=== PATIENT | female | born 1950 ===

== ENCOUNTER 2017-12-07 05:44 | Inpatient (IN) | payer BC ==
[2017-12-07] MEDS ORDERED: Buffered Lidocaine 0.9% SYRIN* 5 ML/SYR SYRINGE INTRADERM ONE (06:00)
[2017-12-07] MEDS ORDERED: Gabapentin CAP(*) 300 MG PO ONE (06:00)
[2017-12-07] MEDS ORDERED: Famotidine IV* 10 MG/ML 2 ML (20 mg) IV ONE (06:00)
[2017-12-07] MEDS ORDERED: ceFAZolin 2 GM PREMIX (*) 2 GM/50 ML BAG IVPB ONE (06:19)
[2017-12-07] MEDS ORDERED: Famotidine IV* 10 MG/ML 2 ML (20 mg) ONE (06:19)
[2017-12-07] MEDS ORDERED: Gabapentin CAP(*) 300 MG ONE (06:19)
[2017-12-07] MEDS ORDERED: Lidocaine 1% MPF wEPI 200,000* 30 ML SDV ONE (06:57)
[2017-12-07] MEDS ORDERED: Bupivacaine 0.5% SDV PF* 30ML VIAL ONE (06:58)
[2017-12-07] MEDS ORDERED: Midazolam* 1 MG/ML 5 ML VIAL (5 MG) ONE (07:30)
[2017-12-07] MEDS ORDERED: fentaNYL* 50 MCG/ML 2 ML VIAL (100 MCG VIAL) ONE (07:30)
[2017-12-07] MEDS ORDERED: KETAMINE HCL* 50 MG/ML 10 ML VIAL ONE (08:03)
[2017-12-07] MEDS ORDERED: Ketorolac INJ* 30 MG/ML 1 ML VIAL ONE (08:22)
[2017-12-07] MEDS ORDERED: Bupivacaine-MPF SPINAL* 7.5 MG/ML - 2ML AMP ONE (08:22)
[2017-12-07] MEDS ORDERED: DiMENhydriNATE IV* 50 MG/ML VIAL ONE (08:22)
[2017-12-07] MEDS ORDERED: Lidocaine 2% PF * 5 ML VIAL ONE (08:22)
[2017-12-07] MEDS ORDERED: Propofol* 10 MG/ML 20 ML BTL IV PUSH ONE (08:22)
[2017-12-07] MEDS ORDERED: Dexamethasone IV* 4 MG/ML 1 ML (4 MG) ONE (08:22)
[2017-12-07] MEDS ORDERED: EPHEDrine (Pressors)* 50 MG/ML VIAL ONE (08:22)
[2017-12-07] MEDS ORDERED: Cyclobenzaprine TAB* 10 MG PO PRN (10:00)
[2017-12-07] MEDS ORDERED: Ondansetron TAB* 4 MG PO PRN (10:00)
[2017-12-07] MEDS ORDERED: diPHENhydraMINE IV* 50 MG/ML 1 ml VIAL (BENADRYL) IV PRN (10:00)
[2017-12-07] MEDS ORDERED: Morphine VIAL* 4 MG/ML VIAL (1 ml vial) IV PRN ×2 (10:00)
[2017-12-07] MEDS ORDERED: diPHENhydraMINE PO* 25 MG PO PRN (10:00)
[2017-12-07] MEDS ORDERED: Magnesium Hydroxide LIQ* 30 ML UDC PO PRN (10:00)
[2017-12-07] MEDS ORDERED: Acetaminophen TAB* 325 MG PO PRN (10:02)
[2017-12-07] MEDS ORDERED: Naloxone* 0.4 MG/ML 1 ML VIAL IV PRN (10:02)
[2017-12-07] MEDS ORDERED: Ondansetron INJ* 2 MG/ML VIAL IV PRN (10:02)
[2017-12-07] MEDS ORDERED: oxyCODONE TAB* 5 MG TAB PO PRN (10:02)
[2017-12-07] MEDS ORDERED: Gabapentin CAP(*) 100 MG PO ONE (10:04)
[2017-12-07] MEDS ORDERED: Acetaminophen TAB* 325 MG ONE (10:38)
[2017-12-07] MEDS: HYDROmorphone INJ* 0.5 MG/0.5 ML SYRINGE IV PRN ×3 (10:42→11:02)
[2017-12-07] MEDS ORDERED: HYDROmorphone INJ* 0.5 MG/0.5 ML SYRINGE ONE ×2 (10:42→11:01)
[2017-12-07] MEDS ORDERED: traMADol TAB* 50 MG PO SCH ×2 (11:00→18:00)
--- NOTE | 2017-12-07 11:18 | RAD ---
INDICATION: Status post total right knee replacement surgery. TECHNIQUE: 2 views of the right knee were obtained. FINDINGS: The patient is status post total right knee replacement surgery. The bones and prostheses are in normal alignment. There is air within the soft tissues consistent with the patient's recent surgery. There are multiple surgical susan which project over the midline anteriorly. IMPRESSION: STATUS POST TOTAL RIGHT KNEE REPLACEMENT SURGERY.
[2017-12-07] MEDS: oxyCODONE TAB* 5 MG TAB PO PRN (13:37)
[2017-12-07] MEDS: D5W 1/2 NS 1000 ML BAG* 1,000 ML IV SCH (13:40)
--- NOTE | 2017-12-07 14:12 | OP ---
DATE OF OPERATION: 12/07/17 - ROOM #[id number] DATE OF : 50 SURGEON: Guy Wu MD BOUFFANT CURTAIN MACHINE TENDER: HENRIQUE Tena ANESTHESIA: Spinal and sedation. PRE-OP DIAGNOSIS: Osteoarthritis, right knee. POST-OP DIAGNOSIS: Osteoarthritis, right knee. OPERATIVE PROCEDURE: Right total knee arthroplasty. ESTIMATED BLOOD LOSS: Less than 50 cc. COMPLICATIONS: None. HARDWARE: Carmine Persona #6 narrow femur, D tibia, 10 mm polyethylene pacer, 32 mm all polyethylene patellar button. SUMMARY: Mrs. Ballard is a 67-year-old female who is having continued troubles with right knee pain. She has very specifically [id number] in the medial compartment with spurring in all three compartments. She has been treated conservatively with physical therapy, antiinflammatories, topicals and injection , but still has very specific pain about the knee. I discussed with her the total knee arthroplasty should work well to decrease her pain and improve her function versus surgery such as infection, scar formation, stiffness, DVT, pulmonary embolism, hardware failure and continued pain were some of the risks discussed. She had been declared medically optimized and wished to proceed. Sol Lemus was present throughout the case and the case could not have been done without an junior assistant manager. DESCRIPTION OF PROCEDURE: The patient was brought to the OR and spinal anesthesia was introduced. Vallecillo catheter was placed. Tourniquet was placed over the proximal right thigh and was used during the case. Total tourniquet time would be approximately 55 minutes. Right knee was prepped and then draped. Esmarch was used to exsanguinate the leg and the tourniquet was raised. Midline incision was made beginning just medial to the tibial tubercle and split the patella down the middle and came upwards about 7 cm. Incision was carried down to the skin and subcutaneous fat. Small bleeders encountered were ligated using electrocautery. Extensor mechanism was exposed and a sharp parapatellar arthrotomy was made. Quite a bit of clear yellowish joint fluid was encountered. The fat pad was sharply excised and the soft issues were sharply elevated from the medial side of the tibia. Patellar measured 21 mm in thickness and a nice 10 mm cut was taken. The patella was then easily subluxated laterally and the knee was flexed up. Nice exposure of the distal femur was obtained. It could be seen where she was fully worn down with exposed bone within the knee. A step drill was used and opened the femoral canal. Intramedullary guide was placed. Guide was adjusted until it was parallel with the epicondyles and then it was pinned into place. Distal femoral cutting guide was then pinned into place and the intramedullary guide was removed. Guide had been set at 2 degrees and 2 mm. Distal femoral cut was taken and it appeared a nice cut was obtained. Femur was sized and she sat right on a 6. Anterior 6 holes were drilled and 6 cutting guide was placed. Drill was run and this came right on the top side of the femur. Anterior and posterior femoral cuts were then taken as were the chamfer cuts. Attention was turned to the tibia. Step drill was used to open the tibial canal and intramedullary guide was placed. Outrigger was assembled and adjusted until it appeared it would take 2 mm from the worn medial side. Proximal tibial cut was taken and it appeared a nice cut was obtained. With a 10- block, she came out nicely into a full extension and was loose in flexion, as the system has designed to take an extra 2 mm posteriorly. With the alignment mamadou in place, the alignment appeared perfect. Posterior capsule was injected at this point with 20 cc of local. Tibia was sized and a D sat nicely. Proximal tibia was drilled and then punched. Trial instrumentation was placed and she came out nicely into full extension, flexed easily and was stable throughout. Patella tracking was also perfect. Patella sized at 32 and holes were drilled and the trial was placed. Again, patella tracking was perfect. Trial instrumentation was removed. The knee was copiously pulse lavaged. Cement was being prepared. Tibia, followed by femur, patella were also cemented into place. Once the cement had hardened, the knee was searched for excess cement and a few small pieces were found. The knee was again copiously pulse lavaged and both gutters were injected with 10 cc of the 0.5% Marcaine and 1% lidocaine with epi mixture and another 10 was injected into the suprapatellar pouch. A 10-polyethylene was then snapped into place. Knee was again copiously pulse lavaged and parapatellar arthrotomy was repaired using interrupted #1 Vicryl sutures. Subcutaneous tissues were reapproximated with 2-0 Vicryl and skin was closed using susan. Knee was injected with additional 10 cc of the local mixture, a total of 60 had been used. Sterile dressing was applied in the OR. Cryo/Cuff was applied in the OR. The patient was then awakened and was stable on transfer to the recovery room. [id number]/[facility] #: [id number] MTDD
[2017-12-07] MEDS ORDERED: Warfarin TAB(*) 10 MG PO ONE (17:00)
[2017-12-07] MEDS: Clindamycin 600 MG IVPREMIX(* 600 MG/50 ML SDV IV SCH ×2 (17:23→23:48)
[2017-12-07] MEDS: CMC: Nebivolol TAB (NF) 2.5 MG TAB PO SCH (19:02)
[2017-12-07] MEDS: Ondansetron INJ* 2 MG/ML VIAL IV PRN (19:25)
--- NOTE | 2017-12-07 19:41 | CONS ---
[facility] MEDICINE CONSULTATION REPORT: DATE OF CONSULT: 12/07/17 PROVIDER: Ava Lam NP ATTENDING PHYSICIAN: Dr. Wu. CONSULTING PHYSICIAN: Dr. Sultana Duenas (dictated by Ava Lam NP). REASON FOR CONSULT: Hypertension. HISTORY OF PRESENT ILLNESS: Ms. Ballard is a 67-year-old female with a past medical history significant for hypertension, hypothyroid, GERD, and insulin resistance, who presented to [facility] today for elective right total knee arthroplasty with Dr. Wu. In brief, the patient had ongoing pain and failed conservative measures; therefore, opted to have a right total knee replacement. In the postoperative period, the patient has no complaints. She is resting comfortably in her bed. She does confirm that she feels mildly drowsy. She does report that prior to coming in for surgery today, she was in her normal state of health. She denies any fevers. Denies any nausea, vomiting , or diarrhea. Denies any chest pain or shortness of breath. Denies any gross hematuria or dysuria. Denies any focal weakness. Denies any dysphagia. Denies any rashes or lesions. Denies any depression or anxiety. Given her history of hypertension, we were asked by Orthopedics to consult and assist in managing her hypertension. PAST MEDICAL HISTORY: 1. Hypertension. 2. Hypothyroid. 3. GERD. 4. Insulin resistance. PAST SURGICAL HISTORY: Cataract surgery. MEDICATIONS: As outpatient are: 1. Diclofenac 75 mg p.o. daily. 2. Crestor 20 mg p.o. daily. 3. Synthroid 100 mcg p.o. daily. 4. Bystolic 5 mg p.o. daily. 5. Lansoprazole 30 mg p.o. daily. 6. Aspirin 81 mg p.o. daily. 7. Multivitamin 1 p.o. daily. 8. Caltrate with vitamin D 1 daily. 9. Metformin 250 mg daily. ALLERGIES: LISINOPRIL and PENICILLIN. FAMILY HISTORY: Mother and father with a history of coronary artery disease; father at the age of 58. Diabetes, mother with a history of diabetes. Cancer, no documented cancers within the family. SOCIAL HISTORY: She denies tobacco, alcohol, or illicit drug use. She is . In the event she is unable to make her own decisions, her surrogate decision maker is her , Carlene Ballard, phone number is [phone]. She is a full code. REVIEW OF SYSTEMS: General: There was no fever. There were no chills. No unintended weight loss. Cardiac: No chest pain. No edema. Respiratory: Denies any cough, congestion, hemoptysis, or shortness of breath. GI: Denies any nausea, vomiting, diarrhea, or abdominal pain. : Denies any gross hematuria or dysuria. Neurologic: No focal weakness or sensory loss. Eyes: No visual complaints. ENT: No dysphagia. Musculoskeletal: Does report chronic joint aches. Skin: Denies any rashes or lesions. Psych: Denies any depression or anxiety. PHYSICAL EXAM: Vital Signs: Temperature was 97.5, heart rate was 57, respirations 16, O2 saturation was 99% on room air, blood pressure was 110/62. General: Ms. Ballard is a 67-year-old female, sitting up in the bed. She is not in any acute distress. Neurologic: She is alert and oriented x3. She is able to move all extremities. Pupils are equal and reactive to light. Cardiac: S1 , S2. Regular rate and rhythm. No murmurs, rubs, or gallops. Respiratory: Lung sounds are clear to auscultation bilaterally. No accessory muscle use. Abdomen is soft and nontender. Bowel sounds are active x4. Musculoskeletal: She does have a dressing intact to her right knee. Pedal pulses are +2 bilaterally. Posterior tibial pulses are +2 bilaterally. Skin is intact. There are no rashes. She does have a dressing to her right knee. Neurologic: She is alert and oriented x3. There are no focal deficits. Her speech is clear. DIAGNOSTIC STUDIES/LAB DATA: Labs from 11/28/17: WBCs were 6.3, RBCs 4.73, hemoglobin was 13.7, hematocrit was 40, platelet count was 248. Sodium 140, potassium 4.7, chloride 103, carbon dioxide was 32, anion gap of 5, BUN was 21, creatinine 0.79, glucose was 114, calcium was 10.0. Knee x-ray completed on 12/07/17. Radiologist's impression: Status post total right knee replacement surgery. IMPRESSION AND PLAN: Ms. Ballard is a 67-year-old female with past medical history significant for hypertension, hypothyroidism, insulin resistance, gastroesophageal reflux disease, who presented for elective right total knee arthroplasty with Dr. Wu. In the immediate postoperative period, she has no complaints. We were asked to consult and assist in management of her hypertension. Our recommendations are as follows: 1. Status post right total knee arthroplasty. Management per Orthopedics. 2. Hypertension. I would recommend continuing her Bystolic 5 mg p.o. daily. 3. Hypothyroid. She should continue on her Synthroid 100 mcg p.o. daily. 4. Hyperlipidemia. She should continue on Crestor 20 mg p.o. daily. 5. Gastroesophageal reflux disease. She should continue on omeprazole p.o. daily. 6. Insulin resistance. She should continue on her metformin 250 mg p.o. daily. 7. Diet: I would recommend that she be placed on a heart-healthy, consistent carb diet. 8. DVT prophylaxis: As per Orthopedics. 9. Code status: She is a full code. TIME SPENT: Time spent on this consultation was approximately 45 minutes, more than half the time was spent with the patient at the bedside reviewing events leading thus far to her hospitalization and performing physical exam and reviewing my plan of care. AVA LAM, DAVID [id number]/[facility] #: [id number] IRON
[2017-12-07] MEDS: Acetaminophen TAB* 325 MG PO SCH (21:13)
[2017-12-07] MEDS: Docusate CAP* 100 MG PO SCH (21:13)
[2017-12-07] MEDS: Magnesium Hydroxide LIQ* 30 ML UDC PO SCH (21:17)
[2017-12-07] MEDS: traMADol TAB* 50 MG PO SCH (22:00)
[2017-12-08] MEDS: D5W 1/2 NS 1000 ML BAG* 1,000 ML IV SCH ×2 (01:02→12:49)
[2017-12-08] MEDS: traMADol TAB* 50 MG PO SCH ×4 (03:49→22:29)
[2017-12-08] MEDS: Levothyroxine TAB* 100 MCG TAB PO SCH (06:03)
[2017-12-08] MEDS: Acetaminophen TAB* 325 MG PO SCH ×4 (06:03→22:29)
[2017-12-08 06:08] LABS: Hematocrit 32 % (35-47); Hemoglobin 10.9 g/dl (12.0-16.0); Mean Platelet Volume 8.8 um3 (7.4-10.4); Platelet Count 208 10^3/ul (150-450)
[2017-12-08 06:15] LABS: INR 1.37 (0.77-1.02)
[2017-12-08 07:02] LABS: EGFR Non-African American 101.7 (>60)
[2017-12-08] MEDS: Omeprazole CAP* 20 MG PO SCH (07:47)
[2017-12-08] MEDS: Clindamycin 600 MG IVPREMIX(* 600 MG/50 ML SDV IV SCH (07:47)
[2017-12-08] MEDS: oxyCODONE TAB* 5 MG TAB PO PRN ×3 (07:47→17:22)
[2017-12-08] MEDS: Atorvastatin* 40 MG TAB PO SCH (08:36)
[2017-12-08] MEDS: Ondansetron INJ* 2 MG/ML VIAL IV PRN ×2 (08:52→14:35)
[2017-12-08] MEDS: Docusate CAP* 100 MG PO SCH ×3 (08:52→22:29)
[2017-12-08] MEDS: Prenatal Vitamin TAB PO SCH ×2 (08:52→08:57)
[2017-12-08] MEDS: metFORMIN* 500 MG TAB PO SCH ×2 (08:52→08:57)
[2017-12-08] MEDS: Magnesium Hydroxide LIQ* 30 ML UDC PO SCH ×3 (08:52→22:45)
[2017-12-08] MEDS ORDERED: Vitamin THERAPEUTIC TAB PO SCH (09:00)
--- NOTE | 2017-12-08 09:27 | PN ---
Progress Note - Progress Note Date of Service: 12/08/17 SOAP: Subjective: []Patient seen OOB in chair. She is POD 1 s/p right total knee arthroplasty. She is nauseous and vomit while I was in the room. She has decreased sensation of her right foot which has improved overnight, and decreased ability to dorsiflex her right foot which has also improved overnight. She denies chest pain, shortness of breath or dizziness. Objective: [] Vital Signs Temp 97.6 F 12/08/17 07:21 Pulse 53 12/08/17 08:36 Resp 18 12/08/17 07:47 BP 122/63 12/08/17 08:36 Pulse Ox 96 12/08/17 07:21 Intake & Output 12/07/17 12/08/17 12/08/17 18:59 06:59 18:59 Intake Total 1547 2190 Output Total 900 2400 Balance 647 -210 Intake: IV Fluids 1397 776 D5W 1/2 NS 297 776 LR 1100 IVPB 114 ABX - CLINDAMYCIN 114 Oral 150 1300 Output: Vallecillo 900 2400 Laboratory Last Values Hgb 10.9 g/dl (12.0-16.0) L 12/08/17 05:57 Hct 32 % (35-47) L 12/08/17 05:57 Plt Count 208 10^3/ul (150-450) 12/08/17 05:57 MPV 8.8 um3 (7.4-10.4) 12/08/17 05:57 INR (Anticoag Therapy) 1.37 (0.77-1.02) H 12/08/17 05:57 Sodium 139 mmol/L (135-145) 12/08/17 05:57 Potassium 4.2 mmol/L (3.5-5.0) 12/08/17 05:57 Chloride 104 mmol/L (101-111) 12/08/17 05:57 Carbon Dioxide 29 mmol/L (22-32) 12/08/17 05:57 Anion Gap 6 mmol/L (2-11) 12/08/17 05:57 BUN 12 mg/dL (6-24) 12/08/17 05:57 Creatinine 0.59 mg/dL (0.51-0.95) 12/08/17 05:57 Est GFR ( Amer) 123.0 (>60) 12/08/17 05:57 Est GFR (Non-Af Amer) 101.7 (>60) 12/08/17 05:57 BUN/Creatinine Ratio 20.3 (8-20) H 12/08/17 05:57 Glucose 174 mg/dL (70-100) H 12/08/17 05:57 POC Glucose (mg/dL) 171 mg/dL (70-100) H 12/07/17 10:13 Calcium 8.7 mg/dL (8.6-10.3) 12/08/17 05:57 General: Vomiting, NAD RLE: Dressing CDI with cryo unit in use. Thigh soft. Sensation intact to light touch throughout the lower leg and foot, though reported decreased sensation over dorsum of foot and medial foot. 1st webspace and great toe with normal sensation. Weak dorsiflexion is present. Able to extend toes, no difficulty with plantarflexion. DP pulse 2+, capillary refill less than two seconds distally. Calves supple and nontender without erythema, edema or palpable cords. Assessment: []POD 1 sp right total knee arthroplasty Plan: []WBAT PT/OT. Encouraged ankle pumps to work on dorsiflexion Heparin bridge to coumadin. Coumadin 4 mg today Appreciate medicine consult
[2017-12-08] MEDS ORDERED: Dextrose 50% Syringe 50 ML* 25 GM/50 ML SYRINGE IV PUSH PRN (09:51)
[2017-12-08] MEDS: Heparin VIAL(*) 5000 UNITS/ML VIAL (FIVE THOUSAND) SUBCUT SCH ×3 (12:24→22:30)
[2017-12-08] MEDS: Insulin LISPRO* 1 UNITS UNIT SUBCUT SCH ×4 (12:28→22:02)
--- NOTE | 2017-12-08 16:50 | PN ---
Subjective Date of Service: 12/08/17 Interval History: Patient continues to have weakness in RLE with dorsiflexion and moderately decreased sensation across whole foot. Denies CP, SOB, F/C, N/V, abdominal pain , Has not urinated since avery has been removed. Passing gas with no BM. Family History: Unchanged from Admission Social History: Unchanged from Admission Past Medical History: Unchanged from Admission Objective Active Medications: Acetaminophen (Tylenol Tab*) 975 mg PO Q8HR [facility] Last Admin: 12/08/17 14:35 Dose: 975 mg Aspirin (Aspirin Ec Tab*) 81 mg PO QPM [facility] Atorvastatin Calcium (Lipitor*) 40 mg PO QAM [facility] Last Admin: 12/08/17 08:36 Dose: Not Given Bisacodyl (Dulcolax Supp*) 10 mg [place] DAILY PRN PRN Reason: constipation Cyclobenzaprine HCl (Flexeril Tab*) 10 mg PO TID PRN PRN Reason: SPASMS Dextrose (D50w Syringe 50 Ml*) 12.5 gm IV PUSH .FOR FS < 60 - SS PRN PRN Reason: FS < 60 Diphenhydramine HCl (Benadryl Iv*) 25 mg IV Q6H PRN PRN Reason: itching Diphenhydramine HCl (Benadryl Po*) 25 mg PO Q6H PRN PRN Reason: itching Docusate Sodium (Colace Cap*) 100 mg PO BID [facility] Last Admin: 12/08/17 08:55 Dose: Not Given Heparin Sodium (Porcine) (Heparin Vial(*)) 5,000 units SUBCUT Q8HR [facility] Last Admin: 12/08/17 12:43 Dose: Not Given Dextrose/Sodium Chloride (D5w 1/2 Ns 1000 Ml Bag*) 1,000 mls @ 100 mls/hr IV PER RATE [facility] Last Admin: 12/08/17 12:49 Dose: 100 mls/hr Insulin Human Lispro (Humalog*) 0 units SUBCUT ACHS [facility]; Protocol Last Admin: 12/08/17 12:33 Dose: 2 unit Levothyroxine Sodium (Synthroid Tab*) 100 mcg PO QAM@0600 [facility] Last Admin: 12/08/17 06:03 Dose: 100 mcg Magnesium Hydroxide (Milk Of Magnesia Liq*) 30 ml PO BID [facility] Last Admin: 12/08/17 08:57 Dose: Not Given Magnesium Hydroxide (Milk Of Magnesia Liq*) 30 ml PO Q6H PRN PRN Reason: constipation [facility]formin [facility] ([facility]ucophage*) [facility] Admin: 12/08/17 08:57 Dose: Not Given Morphine Sulfate (Morphine Vial*) 2 mg IV Q2H PRN PRN Reason: PAIN - SEVERE Morphine Sulfate (Morphine Vial*) 4 mg IV Q2H PRN PRN Reason: PAIN Multivitamins ( Vitamin Tab*) 1 tab PO [facility] Last Admin: 12/08/17 08:57 Dose: Not Given Nebivolol (Bystolic Tab (Nf)) 5 mg PO QPM [facility] Last Admin: 12/07/17 19:02 Dose: 5 mg Omeprazole (Prilosec Cap*) 20 mg PO DAILY@0730 [facility]; Protocol Last Admin: 12/08/17 07:47 Dose: 20 mg Ondansetron HCl (Zofran Inj*) 4 mg IV Q6H PRN PRN Reason: nausea Last Admin: 12/08/17 14:35 Dose: 4 mg Ondansetron HCl (Zofran Tab*) 4 mg PO Q6H PRN PRN Reason: NAUSEA Oxycodone HCl (Roxycodone Tab*) 5 mg PO Q4H PRN PRN Reason: PAIN - MODERATE Last Admin: 12/08/17 07:47 Dose: 5 mg Pharmacy Profile Note (Coumadin Daily Reminder*) 0 note FOLLOW UP 1700 [facility] Last Admin: 12/07/17 17:23 Dose: 1 note Tramadol HCl (Ultram*) 50 mg PO Q6H [facility] Last Admin: 12/08/17 16:13 Dose: 50 mg Vital Signs - 8 hr 12/08/17 12/08/17 12/08/17 10:23 11:25 11:43 Temperature 97.6 F Pulse Rate 51 Respiratory 16 16 Rate Blood Pressure 108/62 (mmHg) O2 Sat by Pulse 100 Oximetry 12/08/17 12/08/17 12/08/17 12:24 13:44 16:13 Temperature Pulse Rate 53 Respiratory 16 16 Rate Blood Pressure 118/67 (mmHg) O2 Sat by Pulse 98 Oximetry Oxygen Devices in Use Now: None Appearance: Patient is a 67yo female who appears stated age and is sitting in the bed in NAD. Eyes: No Scleral Icterus, PERRLA Ears/Nose/Mouth/Throat: NL Teeth, Lips, Gums, Clear Oropharnyx, Mucous Membranes Moist Neck: NL Appearance and Movements; NL JVP, Trachea Midline Respiratory: Symmetrical Chest Expansion and Respiratory Effort, Clear to Auscultation Cardiovascular: NL Sounds; No Murmurs; No JVD, RRR, No Edema Abdominal: NL Sounds; No Tenderness; No Distention, No Hepatosplenomegaly Lymphatic: No Cervical Adenopathy Extremities: No Edema, No Clubbing, Cyanosis Skin: No Rash or Ulcers, No Nodules or Sclerosis Neurological: Alert and Oriented x 3, NL Sensation - Decreased sensation on right foot. Weakness with dorsiflexion. , NL Muscle Strength and Tone Result Diagrams: 12/08/17 05:57 12/08/17 05:57 Assess/Plan/Problems-Billing Assessment: Patient is a 67yo female with a PMH for DM II, HTN here S/P RTKA who is doing well. - Patient Problems (1) History of total right knee replacement Current Visit: Yes Status: Acute Code(s): Z96.651 - PRESENCE OF RIGHT ARTIFICIAL KNEE JOINT SNOMED Code(s): 5364678139079 Comment: Management per orthopedics. H/H stable, monitor. Avery removed. No BM. Monitor for resolution of LE weakness and decreased sensation. Likely slow recovery from nerve block (2) DMII (diabetes mellitus, type 2) Current Visit: Yes Status: Acute Comment: SSI in hospital for tight BG control. Moderate control. D5W 1/2 NS stopped and NS started. (3) HTN (hypertension) Current Visit: Yes Status: Acute Code(s): I10 - ESSENTIAL (PRIMARY) HYPERTENSION SNOMED Code(s): 30130336 Comment: Normotensive. Continue Nebivilol. (4) DVT prophylaxis Current Visit: Yes Status: Acute Code(s): FDX6342 - SNOMED Code(s): 598781006 Comment: Lovenox to Coumadin per orthopedics (5) Full code status Current Visit: Yes Status: Acute Code(s): Z78.9 - OTHER SPECIFIED HEALTH STATUS SNOMED Code(s): 801435686 Status and Disposition: Inpatient.
[2017-12-08] MEDS ORDERED: NS 0.9% 1000 ML* 1,000 ML IV SCH (17:00)
[2017-12-08] MEDS: CMC: Nebivolol TAB (NF) 2.5 MG TAB PO SCH (17:22)
[2017-12-08] MEDS: Aspirin EC TAB* 81 MG TAB.EC PO SCH (17:22)
[2017-12-08] MEDS ORDERED: Ketorolac INJ* 15 MG/ML 1 ML VIAL IV PUSH ONE (18:00)
[2017-12-08] MEDS ORDERED: Warfarin TAB(*) 4 MG PO ONE (18:00)
[2017-12-09] MEDS: traMADol TAB* 50 MG PO SCH ×4 (05:05→21:51)
[2017-12-09] MEDS: Acetaminophen TAB* 325 MG PO SCH ×4 (06:19→22:50)
[2017-12-09] MEDS: Levothyroxine TAB* 100 MCG TAB PO SCH (06:19)
[2017-12-09] MEDS: Heparin VIAL(*) 5000 UNITS/ML VIAL (FIVE THOUSAND) SUBCUT SCH ×2 (06:20→13:44)
[2017-12-09 07:19] LABS: INR 3.49 (0.77-1.02)
[2017-12-09 07:20] LABS: Hematocrit 31 % (35-47); Hemoglobin 10.5 g/dl (12.0-16.0); Mean Platelet Volume 9.4 um3 (7.4-10.4); Platelet Count 189 10^3/ul (150-450)
[2017-12-09] MEDS: Insulin LISPRO* 1 UNITS UNIT SUBCUT SCH ×4 (07:40→21:15)
[2017-12-09] MEDS: Omeprazole CAP* 20 MG PO SCH (07:49)
--- NOTE | 2017-12-09 08:20 | PN ---
Progress Note - Progress Note Date of Service: 12/09/17 SOAP: Subjective: Patient seen OOB in chair. She is POD 2 s/p right total knee arthroplasty. She is nauseous but no vomiting overnight. Sensation in right foot resolved and able to dorsiflex right foot this morning. She denies chills, chest pain, shortness of breath or dizziness. Objective: Vital Signs Temp 98.0 F 12/09/17 07:12 Pulse 58 12/09/17 07:12 Resp 18 12/09/17 07:40 BP 122/63 12/09/17 07:12 Pulse Ox 100 12/09/17 07:12 Intake & Output 12/08/17 12/09/17 12/09/17 18:59 06:59 18:59 Intake Total 2278 500 0 Output Total 775 900 400 Balance 1503 -400 -400 Intake: IV Fluids 1570 ABX - CLINDAMYCIN 50 D5W 1/2 NS 1520 Oral 708 500 0 Output: Urine 700 900 400 Emesis 75 Other: Estimated Void Medium # Voids 1 Laboratory Results - last 24 hr 12/08/17 12/08/17 12/08/17 12:27 16:58 22:01 Hgb Hct Plt Count MPV INR (Anticoag Therapy) POC Glucose (mg/dL) 215 H 182 H 137 H 12/09/17 12/09/17 12/09/17 06:40 06:40 07:39 Hgb 10.5 L Hct 31 L Plt Count 189 MPV 9.4 INR (Anticoag Therapy) 3.49 H POC Glucose (mg/dL) 118 H General: WN, WD, lying comfortably in bed. A&O, NAD. RLE: Dressing C/D/I. Incision clean, moderate edema and mild ecchymosis anterior knee, susan intact, no purulent discharge. +DF/PF 5/5 equal strength bilaterally. 2+ DP. SITLT. Calf soft, nontender, no palpable cords. Assessment: POD 2 S/P R TKA with Dr. Wu on 12/07/17. Plan: - WBAT - PT/OT - Heparin bridge to coumadin. INR supratherapeutic today. Hold coumadin tonight. - Appreciate medicine consult
[2017-12-09] MEDS ORDERED: Scopolamine 1.5 mg* PATCH TRANSDERM SCH (09:00)
[2017-12-09] MEDS: Docusate CAP* 100 MG PO SCH ×2 (09:17→20:21)
[2017-12-09] MEDS: Prenatal Vitamin TAB PO SCH (09:17)
[2017-12-09] MEDS: Magnesium Hydroxide LIQ* 30 ML UDC PO SCH ×2 (09:17→20:21)
[2017-12-09] MEDS: Atorvastatin* 40 MG TAB PO SCH (09:17)
[2017-12-09] MEDS: metFORMIN* 500 MG TAB PO SCH (09:17)
[2017-12-09] MEDS ORDERED: Bisacodyl SUPP* 10 MG SUPP PR PRN (10:00)
--- NOTE | 2017-12-09 11:06 | DS ---
Amended report to enter co-signing physician. DISCHARGE SUMMARY: DATE OF ADMISSION: 12/07/17 DATE OF DISCHARGE: 12/09/17 ATTENDING PHYSICIAN: Dr.Joseph Wu* (dictated by HENRIQUE Vargas). CHIEF COMPLAINT: 1. Right knee osteoarthritis. 2. Type 2 diabetes. 3. Hypertension. DISCHARGE DIAGNOSES: 1. Status post right total knee arthroplasty. 2. Type 2 diabetes. 3. Hypertension. 4. Deep vein thrombosis prophylaxis. PROCEDURE: Right total knee arthroplasty. CONSULTATIONS: Physical Therapy, Occupational Therapy, and Medicine. BRIEF HISTORY: Ms. Ballard is a 67-year-old female with severe end-stage arthritis. She has failed conservative treatment and elected to undergo right total knee arthroplasty on 12/07/[address] Wu. HOSPITAL COURSE: Ms. Ballard was admitted to the [facility] on 12/07/17 and underwent a right total knee arthroplasty. Postoperatively, she recovered in the short- stay unit on postoperative day 1. Her Val[place] catheter was removed and she was able to urinate on her own. She was advanced to carb control diet but she did have significant nausea and vomiting. Her pain was controlled with p.o. tramadol and Tylenol and she was restarted on home medications. Labs and vital signs remained stable. She was not able to participate in physical therapy on postop day 1. In the evening of postop day 1, she was able to take some food down and had no more vomiting. On postop day 2, she attempted physical therapy. DVT prophylaxis was managed with Lovenox and Coumadin and she was supratherapeutic on postoperative day 2 and 3 with an INR of 3.49 and 3.32 respectively. On postoperative day 3, she was transferred to [facility] for continued care. PHYSICAL EXAMINATION: General: Well nourished, well developed, no acute distress, lying comfortably in her bed with basin at her side. Alert and oriented. Vital Signs: Temperature 98, pulse 58, respirations 18, blood pressure 122/63. Right lower dressing is clean, dry, and intact over the right knee. Her incision is clean and intact with moderate edema and mild ecchymosis at the anterior knee. No purulent discharge, warmth, or other signs of infection. She has good dorsiflexion and plantar flexion, which are equal bilaterally. She has 2+ DP pulse. Sensation intact to light touch distally. Her calf is soft, nontender, no palpable cords. LABORATORY DATA ON THE DATE OF DISCHARGE: Hemoglobin 10.5, hematocrit 31. INR 3.49. RADIOGRAPHS: Postoperative radiographs of the right knee demonstrate right total knee arthroplasty with satisfactory prosthesis placement and no acute bony abnormalities. DISCHARGE MEDICATIONS: 1. Aspirin 81 mg. 2. Calcium one tab daily. 3. Diclofenac 1% gel apply topically in the mornings. 4. Prevacid 30 mg daily. 5. Levothyroxine 100 micrograms daily. 6. Metformin 250 mg daily. 7. Multivitamin daily. 8. Bystolic 5 mg at night. 9. Rosuvastatin 20 mg daily. 10. Acetaminophen 875 mg every 8 hours as needed for pain. 11. Colace 100 mg as needed twice a day for constipation. 12. Zofran 4 mg as needed q.6 hours for vomiting. 13. Scopolamine 1.5 mg transdermal patch as needed for nausea. 14. Tramadol 50 mg 1 to 2 tablets every 6 hours max daily dose 8 tablets as needed for pain. 15. Vitamin B12. 16. Vitamin D3. 17. Warfarin 2 mg tablets, take 1 to 3 tablets as directed. CONDITION ON DISCHARGE: Stable. DISCHARGE INSTRUCTIONS: Ms. Ballard is a 67-year-old female postoperative day 3, status post right total knee arthroplasty, which has been complicated by nausea and vomiting. She is orthopedically stable for discharge to [facility]. Labs and vital signs have been stable. She will restart her home medications. She will hold her Coumadin tonight at 5 p.m. and recheck INR tomorrow. Coumadin dosing will be adjusted every Thursday and on discharge with visiting nursing services. She will remain weightbearing as tolerated in the right lower extremity. Once discharged from this unit, she will require home physical therapy and nursing services to do PT twice a week and check INR Thursday and . She will take Colace up to twice a day for constipation and use tramadol for pain control. She will follow up with Dr. Wu in about 4 weeks for incision check. She will have susan removed by home services at 10 to 14 days after surgery. She will call the office immediately if she developed fever, increasing pain, or increasing redness. LINDA MARKER, HENRIQUE [id number]/[facility] #: [id number] IRON
[2017-12-09] MEDS: HYDROcodone/ACETAMIN 5-325 MG* 1 TAB PO PRN ×2 (17:20→21:14)
[2017-12-09] MEDS: CMC: Nebivolol TAB (NF) 2.5 MG TAB PO SCH (17:22)
[2017-12-09] MEDS: Aspirin EC TAB* 81 MG TAB.EC PO SCH (17:45)
[2017-12-10] MEDS: HYDROcodone/ACETAMIN 5-325 MG* 1 TAB PO PRN ×2 (03:11→09:36)
[2017-12-10] MEDS: traMADol TAB* 50 MG PO SCH ×2 (03:31→09:38)
[2017-12-10 05:53] LABS: Hematocrit 29 % (35-47); Hemoglobin 9.7 g/dl (12.0-16.0); Mean Platelet Volume 8.7 um3 (7.4-10.4); Platelet Count 196 10^3/ul (150-450)
[2017-12-10 05:59] LABS: INR 3.32 (0.77-1.02)
[2017-12-10] MEDS: Levothyroxine TAB* 100 MCG TAB PO SCH (06:10)
[2017-12-10] MEDS: Acetaminophen TAB* 325 MG PO SCH (06:10)
[2017-12-10] MEDS: Omeprazole CAP* 20 MG PO SCH (07:26)
[2017-12-10] MEDS: Insulin LISPRO* 1 UNITS UNIT SUBCUT SCH ×2 (08:07→11:33)
[2017-12-10] MEDS: Magnesium Hydroxide LIQ* 30 ML UDC PO SCH (08:09)
[2017-12-10] MEDS: Docusate CAP* 100 MG PO SCH (08:09)
[2017-12-10] MEDS: metFORMIN* 500 MG TAB PO SCH (08:09)
[2017-12-10] MEDS: Prenatal Vitamin TAB PO SCH (08:09)
[2017-12-10] MEDS: Atorvastatin* 40 MG TAB PO SCH (08:09)
[2017-12-10 11:55] VITALS: BP 120/65
[2017-12-12] MEDS ORDERED: Scopolamine PATCH Remove* 1 NOTE MISC PATCH OFF SCH (09:00)
== END 2017-12-10 13:20 | DRG 302 ==
LOC: AA 05:44 → SSU 13:12
PROVIDERS: ADMIT Orthopaedic Surgery; ATTEND Orthopaedic Surgery
PROC: 0SRC0J9 Replacement of Right Knee Joint with Synthetic Substitute, Cemented, Open Approach (ICD-10-PCS; principal; 2017-12-07 07:30)
DX: M17.11 Unilateral primary osteoarthritis, right knee (principal); I10 Essential (primary) hypertension; E03.9 Hypothyroidism, unspecified; K21.9 Gastro-esophageal reflux disease without esophagitis; Z96.1 Presence of intraocular lens; E78.5 Hyperlipidemia, unspecified; E88.81 Metabolic syndrome and other insulin resistance; E11.9 Type 2 diabetes mellitus without complications; R11.2 Nausea with vomiting, unspecified; Z88.0 Allergy status to penicillin; Z88.8 Allergy status to other drugs, medicaments and biological substances; Z83.3 Family history of diabetes mellitus; Z82.49 Family history of ischemic heart disease and other diseases of the circulatory system; Z98.42 Cataract extraction status, left eye; Z80.9 Family history of malignant neoplasm, unspecified; Z79.82 Long term (current) use of aspirin; Z79.01 Long term (current) use of anticoagulants; Z79.84 Long term (current) use of oral hypoglycemic drugs; Z98.41 Cataract extraction status, right eye; R79.1 Abnormal coagulation profile
CPT/HCPCS: 36415; 80048; 85014; 85018; 85049; 85610; 88305; 88311; A9270-GY; C1776; G8978-GP-CJ; G8978-GP-CL; G8979-GP-CI; G8979-GP-CK; G8987-GO-CJ; G8988-GO-CH; J0690; J1100; J1170; J1240; J1644; J1885; J2001; J2250; J2405; J2704; J3010